=== PATIENT | male | born 1950 | race Caucasian/White ===

== ENCOUNTER 2016-11-17 20:15 | Observation (INO) | payer OTHER ==
[2016-11-17] MEDS ORDERED: NS 1,000 ML IV ONE ×2 (21:20→22:01)
[2016-11-17 21:49] LABS: % IMMATURE GRANULYOCYTES 0.5 % (0.0-1.1); ABSOLUTE IMMATURE GRANULOCYTES 0.05 10^3/uL (0.00-0.10); ADD DIFF? NO; ADD MORPH? NO; ADD SCAN? NO; ATYPICAL LYMPHOCYTE FLAG 0 (0-99); FRAGMENT RBC FLAG 0 (0-99); HEMATOCRIT 41.9 % (40.0-51.0); HEMOGLOBIN 14.4 g/dL (13.7-17.5); LEFT SHIFT FLG 0 (0-99); LIPEMIA HEMOLYSIS FLAG 90 (0-99); MEAN CELL HEMOGLOBIN CONCENTR. 34.4 g/dL (32.4-36.7); MEAN CELL VOLUME 87.3 fL (81.5-99.8); MEAN PLATELET VOLUME 10.2 fL (8.7-11.7); PLATELET CLUMPS FLAG 0 (0-99); PLATELET COUNT 315 10^3/uL (150-400)
--- NOTE | 2016-11-17 21:53 | EDPHY ---
H & P Stated Complaint: RLQ pain Time Seen by Provider: 11/17/16 21:52 HPI/ROS: HPI CHIEF COMPLAINT: Right lower pelvis pain HISTORY OF PRESENT ILLNESS: This patient very pleasant 66-year-old male significant past medical history for kidney stones, who presents emergency room stating that he thinks he has another kidney stone. Patient tells me that in the past he has had the same symptoms. He states around 3:00 p.m. this today he developed right lower pelvic and abdominal pain aching in nature. Denies nausea, denies flank pain, denies back pain. He called his urologist and they referred him here to the emergency room. This patient does tell me that he took a Percocet prior to arrival. He is now pain free 0/10 pain. Past Medical History: No significant medical history, except for kidney stones Past Surgical History: Inguinal hernia repair Social History: Denies use of drugs, tobacco products, works as a cloud software engineer, occasional alcohol Family History: Noncontributory ROS REVIEW OF SYSTEMS: A comprehensive 10 point review of systems is otherwise negative aside from elements mentioned in the history of present illness. Exam Constitutional triage nursing summary reviewed, vital signs reviewed, awake/ alert. Eyes normal conjunctivae and sclera, EOMI, PERRLA. HENT normal inspection, atraumatic, moist mucus membranes, no epistaxis, neck supple/ no meningismus, no raccoon eyes. Respiratory clear to auscultation bilaterally, normal breath sounds, no respiratory distress, no wheezing. Cardiovascular rate normal, regular rhythm, no murmur, no edema, distal pulses normal. Gastrointestinal soft, non-tender, no rebound, no guarding, normal bowel sounds, no distension, no pulsatile mass. Genitourinary no CVA tenderness. Musculoskeletal no midline vertebral tenderness, full range of motion, no calf swelling, no tenderness of extremities, no meningismus, good pulses, neurovascularly intact. Skin pink, warm, & dry, no rash, skin atraumatic. Neurologic awake, alert and oriented x 3, AAOx3, moves all 4 extremities equally, motor intact, sensory intact, CN II-XII intact, normal cerebellar, normal vision, normal speech. Psychiatric normal mood/affect. Heme/Lymph/Immune no lymphadenopathy. Differential Diagnosis: Includes but is not limited to in a particular order, kidney stone, hydroureter, hydronephrosis, UTI, inguinal hernia, groin pull, diverticulitis, colitis Medical Decision Making: this patient had an IV established will obtain blood work, patient had a CT scan abdomen pelvis without contrast to evaluate for kidney stone. Check urinalysis. Re-evaluate. Re-evaluation: CT scan of the abdomen without contrast for kidney stone The results of the study are this shows a 4.7 mm right-sided distal ureter kidney stone with mild- to-moderate hydronephrosis perinephric stranding. The study was read by Dr. Thurman I viewed the images myself on the PACS system. 2320: Spoke with Dr. Hayes with Urology he feels comfortable this patient going home. Follow up in his office. Source: Patient - Personal History Current Tetanus/Diphtheria Vaccine: Yes Current Tetanus Diphtheria and Acellular Pertussis (TDAP): Yes - Medical/Surgical History Hx Asthma: No Hx Chronic Respiratory Disease: No Hx Diabetes: No Hx Cardiac Disease: No Hx Renal Disease: No Hx Cirrhosis: No Hx Alcoholism: No Hx HIV/AIDS: No Hx Splenectomy or Spleen Trauma: No Other PMH: kidney stones, labrum repair, L elbow surgery, L2-L3 laminectomy, LUANN ACL repair, inguinal hernia - Social History Smoking Status: Never smoked Constitutional: Initial Vital Signs Temperature (C) 36.6 C 11/17/16 20:24 Heart Rate 61 11/17/16 20:24 Respiratory Rate 16 11/17/16 20:24 Blood Pressure 129/74 H 11/17/16 20:24 O2 Sat (%) 95 11/17/16 20:24 O2 Delivery Mode Room Air Allergies/Adverse Reactions: No Known Allergies Allergy (Unverified 11/17/16 20:22) Home Medications: Medication Instructions Recorded Fluoxetine HCl [Fluoxetine DR 90mg] 05/20/13 Hydrocodone/APAP 5/325 [[place] 1 - 2 tab PO Q6H PRN #15 tab 09/02/16 5/325 (*)] Ibuprofen 400 mg PO Q6 #30 tablet 09/02/16 Hydrocodone/APAP 5/325 [[place] 1 - 2 tab PO Q4H PRN #10 tab 11/17/16 5/325] Ondansetron HCl [Zofran] 4 mg PO Q4-6PRN PRN #10 tablet 11/17/16 Tamsulosin HCl [Flomax] 0.4 mg PO DAILY #10 cap 11/17/16 Medical Decision Making - Data Points Laboratory Results: Laboratory Results 11/17/16 21:10 11/17/16 21:10 11/17/16 11/17/16 22:45 21:10 WBC 10.39 H 10^3/uL (3.80-9.50) RBC 4.80 10^6/uL (4.40-6.38) Hgb 14.4 g/dL (13.7-17.5) Hct 41.9 % (40.0-51.0) MCV 87.3 fL (81.5-99.8) MCH 30.0 pg (27.9-34.1) MCHC 34.4 g/dL (32.4-36.7) RDW 13.0 % (11.5-15.2) Plt Count 315 10^3/uL (150-400) MPV 10.2 fL (8.7-11.7) Neut % (Auto) 78.7 H % (39.3-74.2) Lymph % (Auto) 10.1 L % (15.0-45.0) [place] % (Auto) 7.6 % (4.5-13.0) Eos % (Auto) 2.5 % (0.6-7.6) Baso % (Auto) 0.6 % (0.3-1.7) Nucleat RBC Rel Count 0.0 % (0.0-0.2) Absolute Neuts (auto) 8.18 H 10^3/uL (1.70-6.50) Absolute Lymphs (auto) 1.05 10^3/uL (1.00-3.00) Absolute Monos (auto) 0.79 10^3/uL (0.30-0.80) Absolute Eos (auto) 0.26 10^3/uL (0.03-0.40) Absolute Basos (auto) 0.06 10^3/uL (0.02-0.10) Absolute Nucleated RBC 0.00 10^3/uL (0-0.01) Immature Gran % 0.5 % (0.0-1.1) Immature Gran # 0.05 10^3/uL (0.00-0.10) Sodium 139 mEq/L (134-144) Potassium 4.3 mEq/L (3.5-5.2) Chloride 106 mEq/L (97-110) Carbon Dioxide 21 L mEq/l (22-31) Anion Gap 12 mEq/L (8-16) BUN 19 mg/dL (7-23) Creatinine 0.9 mg/dL (0.7-1.3) Estimated GFR > 60 Glucose 127 H mg/dL (70-100) Calcium 9.3 mg/dL (8.5-10.4) Total Bilirubin 0.6 mg/dL (0.1-1.4) Conjugated Bilirubin 0.1 mg/dL (0.0-0.5) Unconjugated Bilirubin 0.5 mg/dL (0.0-1.1) AST 26 IU/L (17-59) ALT 30 IU/L (21-72) Alkaline Phosphatase 66 IU/L (38-126) Total Protein 6.2 L g/dL (6.3-8.2) Albumin 3.8 g/dL (3.5-5.0) Lipase 157.0 IU/L (23-300) Urine Color Pending Urine Appearance Pending Urine pH Pending Ur Specific [place] Pending Urine Protein Pending Urine Ketones Pending Urine Blood Pending Urine Nitrate Pending Urine Bilirubin Pending Urine Urobilinogen Pending Ur Leukocyte Esterase Pending Urine RBC Pending Urine WBC Pending Ur Epithelial Cells Pending Ur Culture Indicated? Pending Urine Glucose Pending Medications Given: Discontinued Medications Sodium Chloride (Ns) 1,000 mls @ 0 mls/hr IV ONCE ONE PRN Reason: Wide Open Stop: 11/17/16 21:21 Last Admin: 11/17/16 21:21 Dose: 1,000 mls Sodium Chloride (Ns) 1,000 mls @ 0 mls/hr IV ONCE ONE PRN Reason: Wide Open Stop: 11/17/16 22:02 Last Admin: 11/17/16 22:18 Dose: 1,000 mls Departure - Departure Disposition: Home, Routine, Self-Care Clinical Impression: Kidney stone on right side Condition: Good Instructions: Kidney Stones (ED), Renal Colic (ED) Additional Instructions: 1. Drink lots of fluids. Stay well-hydrated. 2. Return to the emergency room if you develop worsening symptoms questions or concerns. 3. Please follow up with Urology. Referrals: Phil Dominguez MD [Primary Care Provider] - As per Instructions Tevin Hayes MD [Medical Doctor] - As per Instructions Prescriptions: Tamsulosin HCl [Flomax] 0.4 mg PO DAILY #10 cap Hydrocodone/APAP 5/325 [[place] 5/325] 1 - 2 tab PO Q4H PRN #10 tab PRN Reason: Pain, Moderate Ondansetron HCl [Zofran] 4 mg PO Q4-6PRN PRN #10 tablet PRN Reason: Nausea/Vomiting, Use 1st
[2016-11-17 21:56] LABS: ANION GAP 12 mEq/L (8-16); CALCIUM 9.3 mg/dL (8.5-10.4); CARBON DIOXIDE 21 mEq/l (22-31); CHLORIDE 106 mEq/L (97-110); CREATININE 0.9 mg/dL (0.7-1.3); GLOMERULAR FILTRATION RATE > 60; GLUCOSE 127 mg/dL (70-100); POTASSIUM 4.3 mEq/L (3.5-5.2); SODIUM 139 mEq/L (134-144)
[2016-11-17 22:16] LABS: ALBUMIN 3.8 g/dL (3.5-5.0); BILIRUBIN,TOTAL 0.6 mg/dL (0.1-1.4); BILIRUBIN-CONJUGATED 0.1 mg/dL (0.0-0.5); BILIRUBIN-UNCONJUGATED 0.5 mg/dL (0.0-1.1); TOTAL PROTEIN 6.2 g/dL (6.3-8.2)
--- NOTE | 2016-11-17 22:50 | CT ---
CT Scan of the Urinary Tract (Abdomen and Pelvis Without Contrast) at 2209 hours Clinical Indications: Right flank pain. History of stones. COMPARISON: April 2013. Technique: Multidetector helical CT imaging was performed from the kidneys to the urinary bladder, w ithout contrast. Dose reduction techniques were utilized. Findings Abdomen: There is mild scarring at both lung bases. Small hypodense lesions are seen in the liver m ost suggestive of hepatic cysts, stable in appearance with this limited evaluation. The gallbladder is unremarkable. The pancreas is unremarkable. The spleen is unremarkable. There is moderate perin ephric stranding around the right kidney and moderate right hydronephrosis. There is moderate dilata tion of the right ureter. A small nonobstructive calculus is seen in the left kidney. There is evid ence for atherosclerotic disease in the abdominal aorta, without evidence for aneurysmal dilatation. Pelvis: There is a 4.7-mm calculus at the distal right ureter just above the ureterovesical junction . The prostate is enlarged. No significant free fluid in the pelvis. Moderate stool is seen in the colon. No evidence for diverticulitis. The appendix is normal in size and appearance. Multilevel degenerative change is seen in the lumbar spine. IMPRESSION: A 4.7-mm calculus in the distal right ureter, with moderate hydroureter, hydronephrosis, and perinephric stranding around the right kidney. Nonobstructive left nephrolithiasis. Other mud jack nozzleman danielle findings, as above. Results called to Dr. Darian Hernandez on November 17, 2016. Attention: This CT examination is specifically designed to evaluate patients who are clinically susp ected of having acute obstructive uropathy. This examination does not use radiographic contrast, and as such, provides only a limited evaluation of the abdomen, pelvis and retroperitoneum. If there i s further clinical suspicion for pathological conditions other than obstructive uropathy, a complete CT evaluation of the abdomen and pelvis utilizing intravenous, oral, and rectal contrast should be co nsidered.
[2016-11-17 23:19] LABS: COLOR YELLOW; LEUKOCYTE ESTERASE,URINE 2+ (NEGATIVE); NITRITE,URINE NEGATIVE (NEGATIVE)
[2016-11-17] MEDS ORDERED: ONDANSETRON 4MG PREPACK#2 BTL TAKEHOME ONE (23:22)
[2016-11-17] MEDS ORDERED: HYDROCOD/APAP 5/325 PREPACK#6 BTL TAKEHOME ONE (23:22)
[2016-11-17 23:28] LABS: BACTERIA TRACE /hpf (NONE SEEN); MUCUS 1+ /lpf (NONE-1+); RBC,URINE 15-25 /hpf (0-3); WBC,URINE 50-182 /hpf (0-3)
[2016-11-17] MEDS ORDERED: CEPHALEXIN 500MG PREPACK#4 BTL TAKEHOME ONE (23:40)
[2016-11-17] MEDS ORDERED: CEPHALEXIN 500 MG CAP PO ONE (23:40)
[2016-11-18] MEDS ORDERED: ONDANSETRON 4 MG/2 ML VIAL IVP PRN (02:27)
[2016-11-18] MEDS ORDERED: oxyCODONE IR 5 MG TAB PO PRN (02:27)
[2016-11-18] MEDS ORDERED: ACETAMINOPHEN 325 MG TAB PO PRN (02:27)
[2016-11-18] MEDS ORDERED: ONDANSETRON DISINTEGRATING 4 MG TAB PO PRN (02:27)
[2016-11-18] MEDS ORDERED: NS 1,000 ML IV SCH (02:30)
--- NOTE | 2016-11-18 03:48 | PDGENHP ---
History and Physical - Chief Complaint Acute abdominal pain - History of Present Illness PCP: Dr. Dominguez Urologist: Dr. Penaloza HPI: 66-year-old male presents with acute abdominal pain characterized as an aching dull pain located in the right groin with associated dysuria. Onset of symptoms was 3:00 p.m. on the day of arrival, symptoms were somewhat alleviated by oral Percocet. The patient reports that several days prior to this presentation, he noted visible hematuria with dysuria, and on the day of presentation his urine was notably cloudy. He has not noted any passage of visible stones, and he has maintained good oral intake. He reports that his discomfort is similar to previous kidney stones. His most recent was in August of 2016, and he underwent extensive evaluation in the outpatient setting via Dr. Penaloza, but no stone was ultimately obtained. History Information - Allergies/Home Medication List Allergies/Adverse Reactions: No Known Allergies Allergy (Unverified 11/17/16 20:22) Home Medications: Fluoxetine HCl [Fluoxetine DR 90mg] 05/20/13 [Last Taken Unknown] I have personally reviewed and updated: family history, medical history, social history, surgical history - Past Medical History Additional medical history: History of nephrolithiasis, 3 years ago, and most recent August of 2016 - Surgical History Additional surgical history: Cystoscopy August 2016 without stone identified - Family History Additional family history: No family history of kidney stones or end-stage renal disease - Social History Smoking Status: Never smoked Alcohol Use: Occasionally Drug Use: None Additional social history: Normally independent in ADLs Review of Systems ROS: 10pt was reviewed & negative except for what was stated in HPI & below Genitourinary: Reports: dysuria, hematuria, pain Physical Exam Temp Pulse Resp BP Pulse Ox 36.3 C 54 L 16 128/74 H 95 11/18/16 00:23 11/18/16 00:23 11/18/16 00:23 11/18/16 00:23 11/18/16 00:23 Constitutional: no apparent distress, appears nourished, not in pain Eyes: PERRL, anicteric sclera, EOMI Ears, Nose, Mouth, Throat: moist mucous membranes, hearing normal, ears appear normal, no oral mucosal ulcers Cardiovascular: regular rate and rhythym, no murmur, rub, or gallop, No edema Respiratory: no respiratory distress, no rales or rhonchi, clear to auscultation Gastrointestinal: normoactive bowel sounds, soft, non-tender abdomen, no palpable masses Genitourinary: no bladder fullness, no bladder tenderness Skin: warm, normal color, no rashes or abrasions, no fluctuance, no induration, No mottled Neurologic: AAOx3, sensation intact bilaterally, No weakness Psychiatric: interacting appropriately, not anxious, not encephalopathic, thought process linear Lab Data & Imaging Review 11/17/16 21:10 11/17/16 21:10 WBC 10.39 10^3/uL (3.80-9.50) H 11/17/16 21:10 RBC 4.80 10^6/uL (4.40-6.38) 11/17/16 21:10 Hgb 14.4 g/dL (13.7-17.5) 11/17/16 21:10 Hct 41.9 % (40.0-51.0) 11/17/16 21:10 MCV 87.3 fL (81.5-99.8) 11/17/16 21:10 MCH 30.0 pg (27.9-34.1) 11/17/16 21:10 MCHC 34.4 g/dL (32.4-36.7) 11/17/16 21:10 RDW 13.0 % (11.5-15.2) 11/17/16 21:10 Plt Count 315 10^3/uL (150-400) 11/17/16 21:10 MPV 10.2 fL (8.7-11.7) 11/17/16 21:10 Neut % (Auto) 78.7 % (39.3-74.2) H 11/17/16 21:10 Lymph % (Auto) 10.1 % (15.0-45.0) L 11/17/16 21:10 [place] % (Auto) 7.6 % (4.5-13.0) 11/17/16 21:10 Eos % (Auto) 2.5 % (0.6-7.6) 11/17/16 21:10 Baso % (Auto) 0.6 % (0.3-1.7) 11/17/16 21:10 Nucleat RBC Rel Count 0.0 % (0.0-0.2) 11/17/16 21:10 Absolute Neuts (auto) 8.18 10^3/uL (1.70-6.50) H 11/17/16 21:10 Absolute Lymphs (auto) 1.05 10^3/uL (1.00-3.00) 11/17/16 21:10 Absolute Monos (auto) 0.79 10^3/uL (0.30-0.80) 11/17/16 21:10 Absolute Eos (auto) 0.26 10^3/uL (0.03-0.40) 11/17/16 21:10 Absolute Basos (auto) 0.06 10^3/uL (0.02-0.10) 11/17/16 21:10 Absolute Nucleated RBC 0.00 10^3/uL (0-0.01) 11/17/16 21:10 Immature Gran % 0.5 % (0.0-1.1) 11/17/16 21:10 Immature Gran # 0.05 10^3/uL (0.00-0.10) 11/17/16 21:10 Sodium 139 mEq/L (134-144) 11/17/16 21:10 Potassium 4.3 mEq/L (3.5-5.2) 11/17/16 21:10 Chloride 106 mEq/L (97-110) 11/17/16 21:10 Carbon Dioxide 21 mEq/l (22-31) L 11/17/16 21:10 Anion Gap 12 mEq/L (8-16) 11/17/16 21:10 BUN 19 mg/dL (7-23) 11/17/16 21:10 Creatinine 0.9 mg/dL (0.7-1.3) 11/17/16 21:10 Estimated GFR > 60 11/17/16 21:10 Glucose 127 mg/dL (70-100) H 11/17/16 21:10 Calcium 9.3 mg/dL (8.5-10.4) 11/17/16 21:10 Total Bilirubin 0.6 mg/dL (0.1-1.4) 11/17/16 21:10 Conjugated Bilirubin 0.1 mg/dL (0.0-0.5) 11/17/16 21:10 Unconjugated Bilirubin 0.5 mg/dL (0.0-1.1) 11/17/16 21:10 AST 26 IU/L (17-59) 11/17/16 21:10 ALT 30 IU/L (21-72) 11/17/16 21:10 Alkaline Phosphatase 66 IU/L (38-126) 11/17/16 21:10 Total Protein 6.2 g/dL (6.3-8.2) L 11/17/16 21:10 Albumin 3.8 g/dL (3.5-5.0) 11/17/16 21:10 Lipase 157.0 IU/L (23-300) 11/17/16 21:10 Urine Color YELLOW 11/17/16 22:45 Urine Appearance MODERATELY TURBID 11/17/16 22:45 Urine pH 5.0 (5.0-7.5) 11/17/16 22:45 Ur Specific [place] 1.023 (1.002-1.030) 11/17/16 22:45 Urine Protein 1+ (NEGATIVE) H 11/17/16 22:45 Urine Ketones 1+ (NEGATIVE) H 11/17/16 22:45 Urine Blood 2+ (NEGATIVE) H 11/17/16 22:45 Urine Nitrate NEGATIVE (NEGATIVE) 11/17/16 22:45 Urine Bilirubin NEGATIVE (NEGATIVE) 11/17/16 22:45 Urine Urobilinogen NEGATIVE EU (0.2-1.0) 11/17/16 22:45 Ur Leukocyte Esterase 2+ (NEGATIVE) H 11/17/16 22:45 Urine RBC 15-25 /hpf (0-3) H 11/17/16 22:45 Urine WBC 50-182 /hpf (0-3) H 11/17/16 22:45 Ur Epithelial Cells TRACE /lpf (NONE-1+) 11/17/16 22:45 Urine Bacteria TRACE /hpf (NONE SEEN) H 11/17/16 22:45 Urine Mucus 1+ /lpf (NONE-1+) 11/17/16 22:45 Ur Culture Indicated? INDICATED (NI) H 11/17/16 22:45 Urine Glucose 1+ (NEGATIVE) H 11/17/16 22:45 Visualized and Interpreted imaging results: Yes Interpretation: Abdominal CT demonstrating moderate right-sided hydronephrosis with a 4.7 mm distal ureteral stone as well as a nonobstructing stone on the left, perinephric stranding on the right present Assessment & Plan Assessment: 66-year-old male presents with acute on chronic nephrolithiasis complicated by acute hydronephrosis and complicated urinary tract infection Plan: 1. Nephrolithiasis. Acute on chronic, new problem this provider, further workup indicated. CT demonstrates distal ureter obstructing stone at the exact etiology is unclear -patient will most likely undergo cystoscopy for stone removal, and n.p.o. in a.m. -strain urine -continue high rate IV fluids -pain control with Tylenol, oxycodone, morphine as needed 2. Hydronephrosis. Acute, moderate, located on the right, most likely require stone removal -discussed with Dr. Dover in the emergency department, he has reported to me that Dr. Hayes has been consulted from Urology and he will see the patient for possible stone removal in the a.m. -avoid NSAIDs until stone is removed 3. Complicated urinary tract infection. Acute, new problem this provider, further workup indicated. Evidenced by positive urinalysis plus mild leukocytosis plus dysuria, in the setting of kidney stone -initiate IV antibiotics, ceftriaxone -reviewed outside records including urine micro from 09/10/2015 demonstrating E coli sensitive to cephalosporins and fluoroquinolones Diet. NPO Prophylaxis. Moderate risk patient, farm contraindicated given upcoming procedure, SCDs Code. Full Disposition. Anticipated discharge is 11/18 versus 11/19, pending urologic procedure and outcome.
[2016-11-18 06:13] LABS: % IMMATURE GRANULYOCYTES 0.2 % (0.0-1.1); ABSOLUTE IMMATURE GRANULOCYTES 0.01 10^3/uL (0.00-0.10); ADD DIFF? NO; ADD MORPH? NO; ADD SCAN? NO; ATYPICAL LYMPHOCYTE FLAG 0 (0-99); FRAGMENT RBC FLAG 0 (0-99); HEMATOCRIT 38.4 % (40.0-51.0); HEMOGLOBIN 12.8 g/dL (13.7-17.5); LEFT SHIFT FLG 0 (0-99); LIPEMIA HEMOLYSIS FLAG 80 (0-99); MEAN CELL HEMOGLOBIN 29.2 pg (27.9-34.1); MEAN CELL HEMOGLOBIN CONCENTR. 33.3 g/dL (32.4-36.7); MEAN CELL VOLUME 87.7 fL (81.5-99.8); PLATELET CLUMPS FLAG 0 (0-99); PLATELET COUNT 280 10^3/uL (150-400); RED BLOOD CELL COUNT 4.38 10^6/uL (4.40-6.38)
[2016-11-18 06:35] LABS: INR 1.06 (0.83-1.16); PROTIME(PATIENT) 13.7 SEC (12.0-15.0)
[2016-11-18 06:36] LABS: APTT 28.7 SEC (23.0-38.0)
[2016-11-18 06:54] LABS: ANION GAP 7 mEq/L (8-16); CALCIUM 8.6 mg/dL (8.5-10.4); CARBON DIOXIDE 24 mEq/l (22-31); CHLORIDE 109 mEq/L (97-110); CREATININE 0.8 mg/dL (0.7-1.3); GLOMERULAR FILTRATION RATE > 60; GLUCOSE 93 mg/dL (70-100); POTASSIUM 3.9 mEq/L (3.5-5.2); SODIUM 140 mEq/L (134-144)
[2016-11-18] MEDS: TAMSULOSIN HCL 0.4 MG CAP PO SCH ×2 (07:19→09:43)
[2016-11-18] MEDS ORDERED: CEFTRIAXONE 1 GM/DEXTROSE/50 ML BAG IV ONE (11:05)
[2016-11-18] MEDS ORDERED: LIDOCAINE 2% JELLY 20 ML (UROJECT) ONE (15:24)
[2016-11-18] MEDS ORDERED: IOPAMIDOL (ISOVUE-M 300) 15 ML VIAL IV ONE (15:25)
[2016-11-18] MEDS ORDERED: IBUPROFEN 200 MG TAB PO PRN (15:50)
[2016-11-18] MEDS ORDERED: MIDAZOLAM 2 MG/2 ML VIAL ONE (16:10)
[2016-11-18] MEDS ORDERED: fentaNYL 100 MCG/2 ML INJ ONE (16:13)
[2016-11-18] MEDS ORDERED: PROPOFOL 200 MG/20 ML VIAL ONE (16:13)
[2016-11-18] MEDS ORDERED: LIDOCAINE 2% 5 ML SDV ONE (16:18)
[2016-11-18] MEDS ORDERED: DEXAMETHASONE 4 MG/ML VIAL ONE (16:31)
[2016-11-18] MEDS ORDERED: ONDANSETRON 4 MG/2 ML VIAL ONE (16:41)
[2016-11-18] MEDS ORDERED: LIDOCAINE 1% 30 ML SDV ONE (16:47)
[2016-11-18] MEDS ORDERED: epHEDrine SULFATE 10 MG/ML SYR ONE (16:51)
[2016-11-18] MEDS ORDERED: SUGAMMADEX SODIUM 200 MG/2 ML VIAL IVP ONE (16:54)
--- NOTE | 2016-11-18 17:05 | POSTOPPROG ---
Post Op Note Date of Operation: 11/18/16 Surgeon: Naga Penaloza Anesthesiologist: ad Anesthesia: GET(General Endotracheal) Pre-op Diagnosis: rt stone Post-op Diagnosis: same Indication: stone Procedure: rt ureteroscopy Findings: stone Inf/Abcess present in the surg proc area at time of surgery?: No EBL: Minimal Drains: Other (stahl) Specimen(s): done, dictated
[2016-11-18 18:00] VITALS: O2SAT 92
--- NOTE | 2016-11-18 18:11 | DX ---
Fluoroscopy for Cystoscopy and Ureteroscopy Indication: Flank pain and calculi. Fluoroscopy time: 0.2 minutes. Dose: 1.10 mGy. Technique: Single intraoperative spot film. Findings: Ureteroscope overlies the lower right pelvis. Impression: Fluoroscopy provided for urologic procedure.
[2016-11-18 19:15] VITALS: BP 134/71; PULSE 62; RESP 15; TEMP 96
--- NOTE | 2016-11-19 03:00 | GOP ---
[f rep st] OPERATIVE REPORT DATE OF OPERATION: 11/18/2016 REQUESTING PHYSICIAN: Dr. Alcantara is the admitting physician who requested our services. SURGEON: Naga Penaloza MD ANESTHESIA: General anesthesia. ANESTHESIOLOGIST: Dr. Gómez. PREOPERATIVE DIAGNOSIS: POSTOPERATIVE DIAGNOSIS: PROCEDURE PERFORMED: FINDINGS: ESTIMATED BLOOD LOSS: 0 INDICATIONS: With this gentleman we discussed the indications and complications associated with this procedure. Written and verbal consent was obtained for a right ureteroscopy, stone manipulation, possible stent. DESCRIPTION OF PROCEDURE: He underwent general anesthesia, was prepped and draped in the normal sterile fashion in dorsal lithotomy position. Urethra normal, prostate obstructing, and +3 to 4 trabeculation of the bladder. I could identify the right ureteral orifice. It was cannulated with a Ewing catheter. Retrograde revealed that he had a distal ureteral stone with mild hydro above the ureter. Because the ureter had been previously instrumented, I was able to pass the semi-rigid scope up to the stone, dislodge it, grasp it with a stone basket, could tease it out and get the stone out intact. Then, I repeated the ureteroscopy to make sure there was no ureteral trauma and confirmed that there was no disruption of the ureter. Then at that point, I placed Xylocaine 30 cc in the ureter for local anesthetic , then put Uro-Jet in the urethra, and placed a Villafuerte catheter. We will have him discontinue tonight and then be discharged home tonight or tomorrow morning. No stent placed and will have followup with him in 3 weeks. Specimen sent to Pathology and I will call his and check out with her so she is aware of what went on and what to expect. No complications. Specimen sent for stone analysis. /[id number]/MODL MTDD
[2016-11-19] MEDS ORDERED: FLUoxetine 10 MG CAP PO SCH (09:00)
--- NOTE | 2016-11-19 12:43 | GCON ---
[f rep st] CONSULTATION DATE OF CONSULTATION: 11/18/2016 REASON FOR CONSULTATION: Ureteral calculus, right side. HISTORY OF PRESENT ILLNESS: This is a pleasant 66-year-old male, who is well known to our office, wh o presented to the emergency room with dull right lower abdomen groin pain that came on acutely. He also had burning with urination. He had also seen blood in his urine several days prior to this acut e onset of pain. No fever or chills. His history is notable for having been evaluated in our office for a right mid pole kidney stone. He had been sent to the [facility] for treatm ent of the stone, but the surgeon at the time was unable to locate or treat that kidney stone. The p atient had a stent placed and then followed up for stent removal in our office, and had done relative ly well from a pain perspective until this encounter. PAST MEDICAL HISTORY: Positive for kidney stones. PAST SURGICAL HISTORY: Shockwave lithotripsy, inguinal hernia repair. MEDICATIONS: Include Claritin, fluoxetine and Flomax. SOCIAL HISTORY: Denies use of drugs, tobacco products. He is a server software engineer. Occasionally use s alcohol. FAMILY HISTORY: Father has prostate cancer. REVIEW OF SYSTEMS: 10-point review of systems negative except as mentioned in HPI. PHYSICAL EXAM: VITAL SIGNS: Blood pressure was 122/64, pulse 62, respirations 15, oxygen 98% on dajuan m air. GENERAL: This is a well-developed, well-nourished male, in no acute distress. HEENT: Normo cephalic, atraumatic. Extraocular movements intact. NECK: Supple. No lymphadenopathy. Trachea mi dline. RESPIRATORY: No accessory respiratory muscle use. CARDIAC: Regular rate and rhythm. No lo wer extremity edema. No obvious JVD. GI: Abdomen soft, nondistended, nontender to palpation at tom e of exam. : No CVA tenderness at time of exam. No bladder distention. INTEGUMENT: No obvious rashes or lesions. MUSCULOSKELETAL: Patient was examined while supine, but able to move all 4 extre mities without difficulty. NEURO: Patient is alert and oriented. Affect appropriate to situation. LABS: His white blood cell count 5.7, hemoglobin 12.8, hematocrit 38.4, platelets 280. Chemistry: Sodium 140, potassium 3.9, chloride 109, carbon dioxide 24, anion gap 7, BUN 14, creatinine 0.8, gluc ose 93, calcium 8.6. His urinalysis was positive for 2+ blood, negative nitrites. Culture was sent on urine. Preliminary urine culture positive for Staph hominis over 100,000, resistance grid is not available yet. The patient also had a CT scan of the abdomen and pelvis done which I reviewed person keith. The CT shows a more distal right-sided 4.7 mm calculus with moderate hydroureter, hydronephros is, and some perinephric stranding around the kidney, nonobstructive left nephrolithiasis. ASSESSMENT AND PLAN: Right ureteral stone. Options for management of right ureteral stone have been discussed with the patient including medical management with medications and observation versus uret eroscopy. He elects to have the stone treated with ureteroscopy. Ample time was given to review the risks and benefits. Consent reviewed and signed. The patient will be prepped for ureteroscopy with Dr. Penaloza later this afternoon. /[id number]/MODL
[2016-11-25 17:44] LABS: NIDUS NOT OBSERVED; SOURCE OF STONE URETER
== END 2016-11-18 22:30 | disposition home or self-care (01) ==
LOC: INTOOBSV 11-18 00:30 → FOB 11-18 13:01
PROVIDERS: ADMIT Internal Medicine; ATTEND Internal Medicine
PROC: 0TC68ZZ Extirpation of Matter from Right Ureter, Via Natural or Artificial Opening Endoscopic (ICD-10-PCS; principal; 2016-11-18 18:00)
DX: N13.6 Pyonephrosis (principal); N20.1 Calculus of ureter; N20.0 Calculus of kidney; Z80.42 Family history of malignant neoplasm of prostate
CPT/HCPCS: 52320; 74176; 76001; C1758; G0378; 82365-90; 96365; J0696; J1100; J2250; J2405; J2704; J3010; Q9967

== ENCOUNTER 2018-07-23 10:14 | Day surgery (SDC) | payer OTHER ==
[2018-07-23] MEDS ORDERED: BACITRACIN ZINC 14.2 GM OINTTUBE TP ONE (10:17)
[2018-07-23] MEDS ORDERED: BUPIVACAINE 0.25% 30 ML SDV ONE (10:17)
[2018-07-23] MEDS ORDERED: ceFAZolin 2 GM/DEXTROSE 100 ML IV ONE (10:19)
[2018-07-23] MEDS ORDERED: LR 1,000 ML IV ONE (10:20)
--- NOTE | 2018-07-23 10:29 | POSTANESTH ---
Post Anesthetic Evaluation Cardiovascular Status: Normal, Stable Respiratory Status: Normal, Stable Level of Consciousness/Mental Status: Can Participate in Eval, Alert and Oriented Pain Control: Adequate, Prn Tx Ordered Nausea/Vomiting Control: Adequate, Prn Tx Ordered Complications Possibly Related to Anesthesia: None Noted
--- NOTE | 2018-07-23 10:58 | PDHPUP ---
History & Physical Update H&P update statement: This history and physical update is based on an assessment of the patient which was completed after admission or registration (within 24 hours), but prior to the surgery/procedure. H&P update: no change in patient's condition since H&P completed
[2018-07-23] MEDS ORDERED: fentaNYL 100 MCG/2 ML INJ ONE (11:01)
[2018-07-23] MEDS ORDERED: DEXAMETHASONE 4 MG/ML VIAL ONE (11:01)
[2018-07-23] MEDS ORDERED: ROCURONIUM 50 MG/5 ML VIAL ONE (11:01)
[2018-07-23] MEDS ORDERED: LIDOCAINE 2% 2 ML INJ ONE (11:01)
[2018-07-23] MEDS ORDERED: PROPOFOL 200 MG/20 ML VIAL ONE ×2 (11:02)
[2018-07-23] MEDS ORDERED: KETOROLAC 30 MG/1 ML SDV ONE (11:16)
[2018-07-23] MEDS ORDERED: ONDANSETRON 4 MG/2 ML VIAL ONE (11:16)
[2018-07-23] MEDS ORDERED: NEOSTIGMINE METHYLSULFATE 5 MG/5 ML SYR ONE (11:16)
[2018-07-23] MEDS ORDERED: GLYCOPYRROLATE 0.2 MG/1 ML VIAL ONE ×2 (11:16→12:14)
--- NOTE | 2018-07-23 11:16 | PDANEPAE ---
ANE History of Present Illness 68 yo male with inguinal hernia for laparoscopic repair. ANE Past Medical History - Cardiovascular History Hx Hypertension: No Hx Arrhythmias: No Hx Chest Pain: No Hx Coronary Artery / Peripheral Vascular Disease: No Hx CHF / Valvular Disease: No Hx Palpitations: No - Pulmonary History Hx Asthma/Reactive Airway Disease: No Hx Oxygen in Use at Home: No Hx Sleep Apnea: No Sleep Apnea Screening Result - Last Documented: Negative - Neurologic History Hx Cerebrovascular Accident: No Hx Seizures: No Hx Dementia: No - Endocrine History Hx Diabetes: No Hypothyroid: No Hyperthyroid: No Obesity: no - Renal History Hx Renal Disorders: No Renal History Comment: KIDNEY STONES X2. BPH - Liver History Hx Hepatic Disorders: No - Neurological & Psychiatric Hx Hx Neurological and Psychiatric Disorders: Yes Neurological / Psychiatric History Comment: ANXIETY & DEPRESSION - Cancer History Hx Cancer: No - Congenital Disorder History Hx Congenital Disorders: No - GI History Hx Gastrointestinal Disorders: No - Other Health History Other Health History: NEG - Chronic Pain History Chronic Pain: No - Surgical History Prior Surgeries: KIDNEY STONES. SHOULDER L. DISCECTOMY LUMBAS. ACL LUANN KNEES. HERNIA 1980s ANE Review of Systems Review of systems is: negative Review of Systems: - Exercise capacity METS (RN): 6 METS ANE Patient History - Allergies Allergies/Adverse Reactions: No Known Allergies Allergy (Unverified 11/17/16 20:22) - Home Medications Home Medications: FLUoxetine [Prozac 10 MG (*)] 10 mg PO DAILY 11/18/16 [Last Taken 5 Days Ago ~] Ibuprofen [Motrin (*)] 400 mg PO DAILY PRN 11/18/16 [Last Taken Unknown] - Anes Hx Anes Hx: post operative nausea (once after GA) - Smoking Hx Smoking Status: Never smoked - Family Anes Hx Family Anes Hx: neg - N/A ANE Labs/Vital Signs - Vital Signs Vital Signs: reviewed preoperatively; see RN documention for details Height: 170.18 cm Weight: 61.235 kg ANE Physical Exam - Airway Neck exam: FROM Mallampati Score: Class 2 Mouth exam: normal dental/mouth exam - Pulmonary Pulmonary: clear to auscultation - Cardiovascular Cardiovascular: bradycardia - ASA Status ASA Status: II ANE Anesthesia Plan Anesthesia Plan: general endotracheal anesthesia
[2018-07-23] MEDS ORDERED: ePHEDrine SULFATE 25 MG/5 ML SYR ONE ×3 (11:40→12:27)
[2018-07-23] MEDS ORDERED: HYDROCODONE/APAP 5/325 TAB PO PRN (12:20)
[2018-07-23] MEDS ORDERED: PROMETHAZINE HCL 25 MG/ML INJ IVP PRN (12:20)
[2018-07-23] MEDS ORDERED: fentaNYL 100 MCG/2 ML INJ IVP PRN (12:20)
[2018-07-23] MEDS ORDERED: ACETAMINOPHEN 500 MG TAB PO PRN (12:20)
[2018-07-23] MEDS ORDERED: ALBUTEROL 3 ML DEYVIAL IH PRN (12:20)
[2018-07-23] MEDS ORDERED: LR 500 ML IV PRN (12:20)
[2018-07-23] MEDS ORDERED: NALOXONE HCL 0.4 MG/ML INJ IVP PRN (12:20)
--- NOTE | 2018-07-23 13:06 | POSTOPPROG ---
Post Op Note Date of Operation: 07/23/18 Surgeon: Greg Bernal (, FACS) Anesthesiologist: Татьяна Mina DO Anesthesia: GET(General Endotracheal) Pre-op Diagnosis: recurrent left inguinal hernia Post-op Diagnosis: recurrent left inguinal hernia, indirect/left femoral hernia Procedure: Lap repair recurrent LIH (TEPP) Findings: indirect and smaller femoral canal hernia Inf/Abcess present in the surg proc area at time of surgery?: No Complications: none
[2018-07-23] MEDS ORDERED: ONDANSETRON DISINTEGRATING 4 MG TAB PO PRN (13:07)
--- NOTE | 2018-07-23 14:04 | GOP ---
DATE OF OPERATION: 07/23/2018 SURGEON: Greg Bernal MD, FACS ANESTHESIA: General endotracheal. ANESTHESIOLOGIST: Charisma Sterling MD. PREOPERATIVE DIAGNOSIS: Recurrent left inguinal hernia. POSTOPERATIVE DIAGNOSIS: Recurrent left inguinal hernia, indirect, and primary femoral hernia. PROCEDURE PERFORMED: Laparoscopic preperitoneal left inguinal herniorrhaphy. FINDINGS: Small femoral canal hernia and moderate-sized indirect inguinal hernia recurrences. ESTIMATED BLOOD LOSS: 10 cc. DESCRIPTION OF PROCEDURE: After informed consent was obtained, the patient was brought to the operating room and placed under general anesthesia. The abdomen was prepped and draped in the usual fashion. Before proceeding, a time-out and identification of the patient was performed. 0.25% Marcaine was used to infiltrate all incision sites. A transverse incision was made below the umbilicus and carried through the skin and subcutaneous tissues. Dissection was carried out down to the fascia which was incised transversely and a plane of dissection was entered posterior to the left rectus muscle and anterior to the left posterior rectus sheath. A balloon dissector was introduced and advanced to the pubis. This was deployed under direct laparoscopic visualization, deflated and removed, and replaced with a structural balloon port. A pneumo pre peritoneum was established with CO2 gas to a pressure of 15 mmHg. A 0 degree scope was introduced and the preperitoneal space was visualized. Additional 5 mm ports were placed in the midline. This allowed introduction of atraumatic grasping forceps which were used to complete the dissection of the pre peritoneum from the anterior abdominal wall. A small femoral canal hernia which had not been suspected preoperatively was reduced and an indirect hernia was reduced from the internal ring and reflected posteriorly. A 3D Max mesh was brought onto the field and positioned over the inguinal floor covering the femoral canal, inguinal floor as well as internal ring. This was secured to the Juan David ligament with 2 firings of the AbsorbaTack. The pneumo pre peritoneum was reduced allowing the preperitoneal tissue to come in contact with the mesh holding it firmly in place. The posterior rectus sheath was incised venting the peritoneum as the patient had developed a pneumoperitoneum during the procedure. All ports were removed. The umbilical fascial defect was repaired with interrupted 0 Vicryl sutures. Subcutaneous tissues were closed with 3-0 Vicryl suture and the skin was closed with 4-0 Monocryl suture in a subcuticular fashion. Topical Mastisol and Steri-Strips were applied. Needle, sponge, and instrument count were correct. COMPLICATIONS: None. /[id number]/MODL MTDD
[2018-07-23 14:17] VITALS: BP 112/60
== END 2018-07-23 16:20 | disposition home or self-care (01) ==
LOC: FSGY 10:14
PROVIDERS: ATTEND Surgery
PROC: 0YU64JZ Supplement Left Inguinal Region with Synthetic Substitute, Percutaneous Endoscopic Approach (ICD-10-PCS; principal; 2018-07-23 11:30)
DX: K40.91 Unilateral inguinal hernia, without obstruction or gangrene, recurrent (principal); N40.0 Benign prostatic hyperplasia without lower urinary tract symptoms; F41.8 Other specified anxiety disorders; R00.1 Bradycardia, unspecified
CPT/HCPCS: C1727; C1781; J0690; J1100; J1885; J2405; J2704; J2710; J3010